=== PATIENT | male | born 1955 | race Caucasian/White ===

== ENCOUNTER 2021-11-29 17:14 | Inpatient (IN) | payer OTHER ==
[2021-11-29 19:32] LABS: BASO % 0.9 % (0-2.0); EOS % 1.6 % (0-4.5); HEMATOCRIT 44.4 % (35.4-49); HEMOGLOBIN 13.9 GM/dL (11.7-16.9); LYMPH % 24.4 % (8-40); MCHC 31.3 g/dl (32.0-35.9); MEAN CELL VOLUME 63.1 fl (80-96); MEAN PLT VOLUME 8.9 fl (7.5-11.1); MONO % 10.7 % (3.8-10.2); NEUT % 62.4 % (42.8-82.8); PLATELET COUNT 315 10^3/uL (134-434); WHITE BLOOD COUNT 7.2 K/mm3 (4.0-10.0)
[2021-11-29 19:34] LABS: MCH 19.7 pg (25.7-33.7); RBC 7.04 M/mm3 (4.00-5.60)
[2021-11-29 19:42] LABS: INR 1.15 (0.83-1.09); PROTHROMBIN TIME (PATIENT) 13.2 SEC (9.7-13.0)
[2021-11-29 19:44] LABS: ACTIVATED PTT 28.5 SECONDS (25.2-36.5)
[2021-11-29 20:00] LABS: CHLORIDE 106 mmol/L (98-107); SODIUM 136 mmol/L (136-145)
[2021-11-29 20:04] LABS: ALBUMIN 3.6 g/dl (3.4-5.0); BLOOD UREA NITROGEN 20.2 mg/dL (7-18); CALCIUM 9.5 mg/dL (8.5-10.1); CO2 26 mmol/L (21-32); GLUCOSE,RANDOM 94 mg/dL (74-106)
[2021-11-29 20:06] LABS: CREATININE 1.8 mg/dL (0.55-1.3); SGOT/AST 80 U/L (15-37); SGPT/ALT 33 U/L (13-61)
[2021-11-29 20:08] LABS: BILIRUBIN,TOTAL 1.1 mg/dL (0.2-1); TOT PROT 8.4 g/dl (6.4-8.2)
[2021-11-29 20:09] LABS: ALK PHOS 94 U/L (45-117)
[2021-11-29 20:13] LABS: ANISOCYTOSIS 1+; MACROCYTOSIS 0; OVALOCYTE 1+; PLATELET ESTIMATE NORMAL; TARGET CELLS 1+
[2021-11-29 20:37] LABS: ANION GAP 5 MMOL/L (8-16)
[2021-11-29] MEDS ORDERED: CEFTRIAXONE 1 GM in DEXTROSE 5%-WATER - 100 ML IVPB ONE (21:20)
[2021-11-29] MEDS ORDERED: AZITHROMYCIN IVPB 500 MG in DEXTROSE 5%-WATER - 250 ML IVPB ONE (21:21)
[2021-11-29] MEDS ORDERED: CEFTRIAXONE 1 GM/50 ML BAG ONE (21:54)
[2021-11-29] MEDS ORDERED: AZITHROMYCIN IVPB 500 MG/250 ML BAG IVPB ONE (21:54)
[2021-11-29 22:58] LABS: CALCIUM 9.5 mg/dL (8.5-10.1)
[2021-11-29 23:02] LABS: CREATININE 1.7 mg/dL (0.55-1.3)
[2021-11-29] MEDS ORDERED: DEXAMETHASONE SOD PHOSPHATE 4 MG/1 ML VIAL IVPUSH ONE (23:39)
[2021-11-29] MEDS ORDERED: ALBUTEROL SO4 HFA INHALER IH PRN (23:49)
[2021-11-29] MEDS ORDERED: DEXAMETHASONE SOD PHOSPHATE 10 MG/1 ML VIAL ONE (23:52)
[2021-11-30 00:21] LABS: MAGNESIUM 2.1 mg/dL (1.8-2.4)
[2021-11-30 01:52] VITALS: BMI 39.9
[2021-11-30 07:25] LABS: BASO % 0.3 % (0-2.0); HEMATOCRIT 44.1 % (35.4-49); HEMOGLOBIN 13.5 GM/dL (11.7-16.9); LYMPH % 16.3 % (8-40); MCHC 30.7 g/dl (32.0-35.9); MEAN CELL VOLUME 63.7 fl (80-96); MEAN PLT VOLUME 9.1 fl (7.5-11.1); NEUT % 82.4 % (42.8-82.8); PLATELET COUNT 292 10^3/uL (134-434); RBC 6.92 M/mm3 (4.00-5.60); RDW 18.3 % (11.9-15.9); WHITE BLOOD COUNT 5.3 K/mm3 (4.0-10.0)
[2021-11-30 07:30] LABS: MCH 19.6 pg (25.7-33.7)
[2021-11-30 07:45] LABS: ALBUMIN 3.3 g/dl (3.4-5.0); BLOOD UREA NITROGEN 19.7 mg/dL (7-18); CALCIUM 9.6 mg/dL (8.5-10.1)
[2021-11-30 07:48] LABS: CREATININE 1.7 mg/dL (0.55-1.3)
[2021-11-30 08:07] LABS: TOT PROT 8.1 g/dl (6.4-8.2)
[2021-11-30] MEDS: PANTOPRAZOLE 40 MG TABLET PO SCH (09:38)
[2021-11-30] MEDS: ASCORBIC ACID 500 MG TABLET (FP) PO SCH (09:38)
[2021-11-30] MEDS: amLODIPine BESYLATE 5 MG TABLET (FP) PO SCH (09:38)
[2021-11-30] MEDS: ZINC SULFATE 220 MG CAPSULE (FP) PO SCH (09:38)
[2021-11-30] MEDS: NEBIVOLOL 10 MG TABLET (FP) PO SCH (09:38)
[2021-11-30] MEDS: ASPIRIN 81 MG CHEWABLE TABLETS PO SCH (09:38)
[2021-11-30] MEDS: TAMSULOSIN HCL 0.4 MG CAP PO SCH (09:38)
[2021-11-30] MEDS: CHOLECALCIFEROL (VIT D3) 1,000 UNIT (25 MCG) TABLET PO SCH (09:39)
[2021-11-30] MEDS: DEXAMETHASONE SOD PHOSPHATE 10 MG/1 ML VIAL IVPUSH SCH (09:39)
[2021-11-30] MEDS: ENOXAPARIN NA (PORCINE) 40 MG/0.4 ML DISP.SYRIN SQ SCH (09:39)
[2021-11-30] MEDS ORDERED: DEXAMETHASONE SOD PHOSPHATE 4 MG/1 ML VIAL IVPUSH ONE (10:00)
[2021-11-30] MEDS: FLUTICASONE/UMECLIDIN/VILANTER(200-62.5-25 TRELEGY ELLIPTA) INAHLER IH SCH (10:30)
[2021-11-30] MEDS: ATORVASTATIN CA 80 MG TABLET (FP) PO SCH (21:49)
[2021-12-01 07:32] LABS: BASO % 0.1 % (0-2.0); HEMATOCRIT 41.7 % (35.4-49); LYMPH % 10.5 % (8-40); MCHC 31.1 g/dl (32.0-35.9); MEAN CELL VOLUME 63.3 fl (80-96); MEAN PLT VOLUME 9.2 fl (7.5-11.1); NEUT % 81.4 % (42.8-82.8); PLATELET COUNT 309 10^3/uL (134-434); RBC 6.58 M/mm3 (4.00-5.60); RDW 18.7 % (11.9-15.9); WHITE BLOOD COUNT 11.6 K/mm3 (4.0-10.0)
[2021-12-01 07:36] LABS: MCH 19.7 pg (25.7-33.7)
[2021-12-01] MEDS: TAMSULOSIN HCL 0.4 MG CAP PO SCH (08:09)
[2021-12-01 08:32] LABS: BLOOD UREA NITROGEN 28.2 mg/dL (7-18)
[2021-12-01 08:33] LABS: ALBUMIN 3.1 g/dl (3.4-5.0)
[2021-12-01 08:34] LABS: CALCIUM 9.3 mg/dL (8.5-10.1)
[2021-12-01 08:35] LABS: CREATININE 1.8 mg/dL (0.55-1.3); MAGNESIUM 2.3 mg/dL (1.8-2.4)
[2021-12-01 08:36] LABS: TOT PROT 7.4 g/dl (6.4-8.2)
[2021-12-01] MEDS: PANTOPRAZOLE 40 MG TABLET PO SCH (09:17)
[2021-12-01] MEDS: NEBIVOLOL 10 MG TABLET (FP) PO SCH (09:17)
[2021-12-01] MEDS: ZINC SULFATE 220 MG CAPSULE (FP) PO SCH (09:17)
[2021-12-01] MEDS: amLODIPine BESYLATE 5 MG TABLET (FP) PO SCH (09:17)
[2021-12-01] MEDS: ASPIRIN 81 MG CHEWABLE TABLETS PO SCH (09:18)
[2021-12-01] MEDS: DEXAMETHASONE SOD PHOSPHATE 10 MG/1 ML VIAL IVPUSH SCH (09:18)
[2021-12-01] MEDS: CHOLECALCIFEROL (VIT D3) 1,000 UNIT (25 MCG) TABLET PO SCH (09:18)
[2021-12-01] MEDS: FLUTICASONE/UMECLIDIN/VILANTER(200-62.5-25 TRELEGY ELLIPTA) INAHLER IH SCH (09:18)
[2021-12-01] MEDS: ENOXAPARIN NA (PORCINE) 40 MG/0.4 ML DISP.SYRIN SQ SCH (09:18)
[2021-12-01] MEDS: ASCORBIC ACID 500 MG TABLET (FP) PO SCH (09:18)
[2021-12-01] MEDS: ATORVASTATIN CA 80 MG TABLET (FP) PO SCH (21:35)
[2021-12-02 07:36] LABS: BASO % 0.1 % (0-2.0); HEMATOCRIT 43.5 % (35.4-49); HEMOGLOBIN 13.6 GM/dL (11.7-16.9); LYMPH % 13.4 % (8-40); MCHC 31.4 g/dl (32.0-35.9); MEAN CELL VOLUME 63.8 fl (80-96); MEAN PLT VOLUME 8.6 fl (7.5-11.1); MONO % 7.4 % (3.8-10.2); NEUT % 79.1 % (42.8-82.8); PLATELET COUNT 297 10^3/uL (134-434); RBC 6.82 M/mm3 (4.00-5.60); RDW 18.1 % (11.9-15.9); WHITE BLOOD COUNT 11.1 K/mm3 (4.0-10.0)
[2021-12-02 08:23] LABS: CALCIUM 8.9 mg/dL (8.5-10.1)
[2021-12-02 08:24] LABS: ALBUMIN 3.4 g/dl (3.4-5.0); BLOOD UREA NITROGEN 31.9 mg/dL (7-18); MAGNESIUM 2.4 mg/dL (1.8-2.4)
[2021-12-02 08:27] LABS: CREATININE 1.8 mg/dL (0.55-1.3)
[2021-12-02 08:29] LABS: TOT PROT 7.8 g/dl (6.4-8.2)
[2021-12-02] MEDS: ASPIRIN 81 MG CHEWABLE TABLETS PO SCH (09:28)
[2021-12-02] MEDS: NEBIVOLOL 10 MG TABLET (FP) PO SCH (09:28)
[2021-12-02] MEDS: PANTOPRAZOLE 40 MG TABLET PO SCH (09:28)
[2021-12-02] MEDS: amLODIPine BESYLATE 5 MG TABLET (FP) PO SCH (09:28)
[2021-12-02] MEDS: CHOLECALCIFEROL (VIT D3) 1,000 UNIT (25 MCG) TABLET PO SCH (09:28)
[2021-12-02] MEDS: ZINC SULFATE 220 MG CAPSULE (FP) PO SCH (09:28)
[2021-12-02] MEDS: TAMSULOSIN HCL 0.4 MG CAP PO SCH (09:28)
[2021-12-02] MEDS: ENOXAPARIN NA (PORCINE) 40 MG/0.4 ML DISP.SYRIN SQ SCH (09:29)
[2021-12-02] MEDS: ASCORBIC ACID 500 MG TABLET (FP) PO SCH (09:29)
[2021-12-02] MEDS: DEXAMETHASONE SOD PHOSPHATE 10 MG/1 ML VIAL IVPUSH SCH (09:29)
[2021-12-02] MEDS: FLUTICASONE/UMECLIDIN/VILANTER(200-62.5-25 TRELEGY ELLIPTA) INAHLER IH SCH (09:29)
[2021-12-02 14:50] VITALS: BP 127/74; PULSE 94; TEMP 97.9
[2021-12-03] MEDS ORDERED: DEXAMETHASONE 4 MG TABLET (FP) PO SCH (10:00)
== END 2021-12-02 15:52 | disposition home or self-care (01) | DRG 177 ==
LOC: JER 17:14 → JERBED 22:16 → J4W 11-30 01:21
PROVIDERS: ADMIT Internal Medicine; ATTEND Nurse Practitioner Family
DX: U07.1 COVID-19 (principal); J96.01 Acute respiratory failure with hypoxia; J12.82 Pneumonia due to coronavirus disease 2019; Z68.41 Body mass index [BMI] 40.0-44.9, adult; J84.9 Interstitial pulmonary disease, unspecified; N17.9 Acute kidney failure, unspecified; I10 Essential (primary) hypertension; E78.5 Hyperlipidemia, unspecified; N40.0 Benign prostatic hyperplasia without lower urinary tract symptoms; I25.10 Atherosclerotic heart disease of native coronary artery without angina pectoris; E66.01 Morbid (severe) obesity due to excess calories; R91.8 Other nonspecific abnormal finding of lung field
CPT/HCPCS: 36415; 71046-TC-FY; 71275-TC; 80048; 80053; 82550; 82553; 82728; 83615; 83735; 84484; 85025; 85379; 85610; 85730; 86140; 86850; 86900; 86901; 87040; 87086; 93005; 93010; 94761; 97116-GP; 97161-GP; 99285-25; C9803; J1100; Q9967; U0003; U0005